=== PATIENT | male | born 1990 | race Caucasian/White ===

== ENCOUNTER 2017-05-26 22:09 | Emergency (ER) | payer OTHER ==
[~2017-05-26] VITALS: Ht 180.3 cm; Wt 88.5 kg
[~2017-05-26 22:09] MED LIST: KET10 PO; MULT-1335 PO
--- NOTE | 2017-05-26 22:14 | ER Report ---
History and Physical Time Seen By MD: 22:13 HPI/ROS CHIEF COMPLAINT: Low back pain HISTORY OF PRESENT ILLNESS: 27-year-old male presents ambulatory to the ER complaining of increasing low back pain. He's had pain for 4 days. He recalls no specific injury. He suffered blast injury while in the service. He states he was seen at the [place] [facility] earlier today and given NSAID without improvement of his symptoms. Patient notes no radiation of pain to his lower extremities. He denies history of herniated disc. He's had no dysuria or hematuria. He notes no incontinence. REVIEW OF SYSTEMS: Respiratory: No cough, no dyspnea. Cardiovascular: No chest pain, no palpitations. Gastrointestinal: No vomiting, no abdominal pain. Musculoskeletal: As above Allergies: Coded Allergies: No Known Drug Allergies (Unverified , 05/26/17) Home Meds Active Scripts Methocarbamol (ROBAXIN-750) 750 Mg Tablet, 1 TAB PO TID Y for muscle relaxation relief, #15 Prov:RUFUS MCNAIR DO 05/26/17 Tramadol Hcl (TRAMADOL HCL) 50 Mg Tablet, 1 TAB PO Q4-6H Y for PAIN, #15 MG TAKE ONE TABLETS BY MOUTH EVERY SIX HOURS NEEDED Prov:RUFUS MCNAIR Comfort DO 05/26/17 Reported Medications Escitalopram Oxalate (ESCITALOPRAM OXALATE) 10 Mg Tablet, 10 MG PO QDAY, TAB 05/26/17 Mirtazapine (MIRTAZAPINE) 7.5 Mg Tablet, 7.5 MG PO 05/26/17 Dextroamphetamine/Amphetamine (ADDERALL XR 25 MG CAPSULE) 40 Mg Cap, 25 MG PO, CAP 05/26/17 Multivitamin With Minerals (MULTIPLE VITAMIN) 1 Each Tablet, 1 EACH PO DAILY, TAB 10/20/16 Discontinued Scripts Ketorolac Tromethamine (KETOROLAC TROMETHAMINE) 10 Mg Tab, 10 MG PO Q6H Y for PAIN, #12 TAB Prov:LOGAN RICKS MD 10/20/16 Reviewed Nurses Notes: Yes Old Medical Records Reviewed: Yes Hx Substance Use Disorder: No Hx Alcohol Use: No Constitutional Vital Sign - Last 24 Hours 05/26/17 22:15 Temp 98.8 Pulse 123 Resp 18 B/P (MAP) 146/85 Pulse Ox 95 O2 Delivery Room Air Physical Exam Vital signs stable, afebrile, mild tachycardia General Appearance: The patient is alert, has no immediate need for airway protection and no current signs of toxicity. Mild distress, mild agitation and restlessness HEENT: Pupils equal and round no injection. Oropharynx without redness or exudate, mucous members are moist Respiratory: Chest is non tender, lungs are clear to auscultation. Cardiac: regular rate and rhythm Gastrointestinal: Abdomen is soft and non tender, no masses, bowel sounds normal. Musculoskeletal: Neck: Neck is supple and non tender. Back: Palpation of the midline of the lumbar spine reveals no tenderness. There is tenderness in the paraspinous muscles in the lower lumbar region. No tenderness of palpation of the SI joints. Extremities have full range of motion and are non tender. Negative straight- leg raise bilaterally Skin: No rashes or lesions. Neuro: Motor is 5 x 5 in both lower externally. He's. Sensory is intact to light touch by laterally, DIFFERENTIAL DIAGNOSIS: After history and physical exam differential diagnosis was considered for back pain including but not limited to muscular pain, herniated disc, spine fracture, intra-abdominal causes and urinary tract infection. Medical Decision Making ED Course/Re-evaluation ED Course Patient was admitted to an examination room. H&P was done. The differential diagnoses was considered. On clinical examination. Patient has mild low back pain. When asked to change positions on the bed. He swings his legs over with a slow ocean. He does appear to have some back discomfort. He has a negative straight relates bilaterally. His neurologic exam is nonfocal. Patient will be treated with tramadol and Robaxin. He is advised to continue the NSAID prescribed by the [place] [facility]. He is advised to follow-up with the [place] [facility] if unimproved in 5-7 days. Decision to Disposition Date: May 26, 2017 Decision to Disposition Time: 22:36 Depart Departure Latest Vital Signs Vital Signs Date Time Temp Pulse Resp B/P (MAP) Pulse Ox O2 Delivery O2 Flow Rate FiO2 05/26/17 22:15 98.8 123 18 146/85 95 Room Air Impression: Primary Impression: Low back pain Condition: Improved Disposition: HOME OR SELF-CARE New Scripts Methocarbamol (ROBAXIN-750) 750 Mg Tablet 1 TAB PO TID Y for muscle relaxation relief, #15 Prov: RUFUS MCNAIR DO 05/26/17 Tramadol Hcl (TRAMADOL HCL) 50 Mg Tablet 1 TAB PO Q4-6H Y for PAIN, #15 MG TAKE ONE TABLETS BY MOUTH EVERY SIX HOURS NEEDED Prov: RUFUS MCNAIR DO 05/26/17 Patient Instructions: Acute Low Back Pain (ED) Additional Instructions: [facility] heating pad to your back [facility] 5-7 days Problem Qualifiers Primary Impression: Low back pain Chronicity: acute Back pain laterality: bilateral Sciatica presence: without sciatica Qualified Codes: M54.5 - Low back pain RUFUS MCNAIR DO May 26, 2017 22:14
[2017-05-26 22:15] VITALS: BP 146/85
[2017-05-26] MEDS ORDERED: ADD25XRPT PO (22:19)
[2017-05-26] MEDS ORDERED: MIRT7.5T2 PO (22:20)
[2017-05-26] MEDS ORDERED: ESCI10TA8 PO (22:20)
[2017-05-26] MEDS ORDERED: METHOCARBAMOL 500 MG TAB PO ONE (22:35)
[2017-05-26] MEDS ORDERED: traMADol 50 MG TAB TH 2 TAB/BOTTLE PO ONE (22:35)
[2017-05-26] MEDS ORDERED: TRAM-420 PO (22:40)
[2017-05-26] MEDS ORDERED: METH-543 PO (22:40)
[2017-05-26] MEDS ORDERED: DEXAMETHASONE 4 MG TAB PO ONE (22:45)
== END 2017-05-26 22:54 | disposition home or self-care (01) ==
LOC: ER 22:12
DX: M54.5 Low back pain (principal)
CPT/HCPCS: 99282; C9399; J8540